=== PATIENT | male | born 1970 | race Caucasian/White ===

== ENCOUNTER 2018-03-20 23:10 | Emergency (ER) | payer SELFPAY ==
[~2018-03-20] VITALS: Ht 177.8 cm; Wt 70.8 kg
[2018-03-20 23:15] VITALS: Ht 177.8 cm; Wt 70.8 kg
[2018-03-21 02:09] VITALS: BP 124/68
== END 2018-03-21 02:09 | disposition home or self-care (01) ==
LOC: ED 23:10
DX: K04.7 Periapical abscess without sinus (principal); L03.211 Cellulitis of face; Z88.0 Allergy status to penicillin

== ENCOUNTER 2018-03-22 21:22 | Emergency (ER) | payer SELFPAY ==
[2018-03-23 01:48] VITALS: BP 152/94
== END 2018-03-23 01:48 | disposition home or self-care (01) ==
LOC: ED 21:22
DX: K05.219 Aggressive periodontitis, localized, unspecified severity (principal); Z88.0 Allergy status to penicillin